=== PATIENT | male | born 1965 | race Caucasian/White ===

== ENCOUNTER 2016-11-28 21:11 | Emergency (ER) | payer BC ==
[2016-11-28] MEDS ORDERED: Proparacaine 0.5% Ophth Soln 15 ML Bottle EYERT PRN (21:24)
[2016-11-28] MEDS ORDERED: Fluorescein 1 MG Ophth Strip EYERT ONE (21:25)
[2016-11-28] MEDS ORDERED: Take Home: Gentamicin 0.3% Ophth Soln 5 ML, 1 Bottle Pack EYEBOTH ONE (22:03)
[2016-11-28 23:52] VITALS: BP 136/80
--- NOTE | 2016-12-03 08:37 | ER ---
Date of Service: 11/28/2016 SUBJECTIVE: Mr. Haynes presents to the emergency room with complaints of a foreign body to his right eye. The patient states that he had been using an angle thread grinder tool to grind some metal approximately 24 hours prior to coming to the emergency room. The patient states that throughout the course of the evening and today he has been experiencing discomfort in the right eye. The patient has also been experiencing some increased watering to the eye as well. He states that he has not noticed any acute vision loss or change. He states that he was wearing eye protection during the grinding, but felt that possibly he did get a piece of metal or piece of sand in his eye. PAST MEDICAL HISTORY: None. MEDICATIONS: None. ALLERGIES: NKDA. REVIEW OF SYSTEMS: Denies any acute vision loss or change. Denies any trauma other than what is isolated to the right eye. PHYSICAL EXAMINATION: General: This is a 51-year-old male patient, in no acute distress. Visual acuity to both eyes pre and post examination is 20/50 to the right eye and 20/40 to the left. Vital signs: Temperature is 36.1, pulse rate is 77, blood pressure is 136/50, respiratory rate is 16, and O2 saturations 96%. Skin: Warm, pink, and dry. HEENT: Head is normocephalic, atraumatic. Eyes, PERRLA. Extraocular movements are intact. There was evidence of a foreign body approximately 2 mm from the lateral edge in the conjunctiva approximately 2mm lateral edge iris at the 9 o'clock position. There is no retained foreign body in the underside of the eyelid. No obvious globe injury noted. Extraocular movements are intact. There is no funduscopic papilledema noted. EMERGENCY ROOM COURSE: The patient's right eye was anesthetized with proparacaine. A small submillimeter speck of metallic material was liberated from the surface of the patient's eye with a cotton-tipped applicator. There was a residual rust formation underlying a piece of steel. I was unable to remove this with a cotton-tipped applicator and subsequently the elder brush was utilized to remove the rust. No other retained material was noted on the surface of the eye or the underside of the eyelid. Fluorescein examination did not reveal any other ocular trauma to the surface of the eye or corneal abrasion other than what was caused by the [place]. The patient tolerated the procedure very well. He remained stable in the my care in the emergency room. ASSESSMENT: Foreign body to right eye with rust formation. PLAN: The patient will be discharged. He was started on gentamicin drops, one drop every 4 hours to right eye. I did advise him to follow up at the eye clinic of his choice tomorrow for slit lamp examination. He is to return to the emergency room if he develops any acute vision loss or change. All questions were answered. MWK: 12/02/2016 20:33:17 MODL: 12/03/2016 00:26:24 /[id number]
== END 2016-11-28 22:15 | disposition home or self-care (01) ==
LOC: VM.ED 21:11 → SUPCPDRO 21:11 → VM.ED 22:15
DX: T15.91XA Foreign body on external eye, part unspecified, right eye, initial encounter (principal); W31.1XXA Contact with metalworking machines, initial encounter
CPT/HCPCS: 65220; 99283; A9270

== ENCOUNTER 2017-04-08 22:18 | Emergency (ER) | payer BC ==
[2017-04-08] MEDS ORDERED: Fluorescein 1 MG Ophth Strip EYELF ONE (22:23)
[2017-04-08] MEDS ORDERED: Proparacaine 0.5% Ophth Soln 15 ML Bottle EYELF PRN ×2 (22:23→22:43)
[2017-04-08 22:25] VITALS: BP 148/89
[2017-04-08] MEDS ORDERED: Take Home: Gentamicin 0.3% Ophth Soln 5 ML, 1 Bottle Pack EYEBOTH ONE (22:40)
--- NOTE | 2017-04-09 07:57 | ER ---
Date of Service: 04/08/2017 SUBJECTIVE: Douglas presents to the emergency room with complaints of foreign body to his left eye. He states that he was using a hardboard grinder and also pulling a lot of wood out of [place]. The patient states that he feels that there is possibility that he got something in his eye. He states that he noticed that when he went to bed and tried to close his eyes that the eye was watering. Denies any injury other than was isolated to his left eye. He states that he thinks he got something stuck in his eye earlier today. PAST MEDICAL HISTORY: Denies. MEDICATIONS: None. ALLERGIES: NKDA. REVIEW OF SYSTEMS: Denies any significant blurred vision in the eye. Again, he states that he is experiencing some irritation and watering to the left eye. Denies any acute vision loss or change. PHYSICAL EXAMINATION: General: This is a 51-year-old male patient, in no acute distress. Vital Signs: Blood pressure is 148/89, heart rate 68, respiratory rate 16, O2 saturations 98%, temp is 36.4, rates his pain at 2 on a 1 to 10 scale. Skin: Warm, pink, and dry. HEENT: Head is normocephalic, atraumatic. Eyes, PERRLA. Extraocular movements are intact. His visual acuity in both eyes was 20/50. Gross evaluation with loupe magnification of the eye does reveal a small subcentimeter foreign body embedded on the surface of the cornea in the area of the mid pupil. No obvious globe injury noted. His extraocular movements are intact. There is no funduscopic papilledema. Also, there was no retained material on the underside of the eyelid. He did have a corneal abrasion located surrounding the area of the foreign body, but no other foreign material was noted. EMERGENCY ROOM COURSE: The patient's left eye was anesthetized with proparacaine. Cotton tipped applicator was used to gently wipe the surface of the eye and liberate the foreign body from the surface of the eye. The patient tolerated this well. Subsequently, fluorescein examination was used to evaluate the surface of the cornea and also the underside of the eyelids. He remained stable in my care in the emergency room. ASSESSMENT: 1. Corneal foreign body. 2. Corneal abrasion. PLAN: The patient was started on gentamicin drops 1 drop every 4 hours for 7 days. I would like him to follow up with his seamer elastic band or facility security officer of choice in the next several days for slit-lamp examination. He needs to return to the emergency room if he develops any acute vision loss or change. All questions were answered. MWK: 04/09/2017 02:35:57 MODL: 04/09/2017 03:11:40 /[id number]
== END 2017-04-08 22:52 | disposition home or self-care (01) ==
LOC: VM.ED 22:18
DX: T15.02XA Foreign body in cornea, left eye, initial encounter (principal); X58.XXXA Exposure to other specified factors, initial encounter
CPT/HCPCS: 65220; 99283; A9270

== ENCOUNTER 2019-05-18 12:42 | Emergency (ER) | payer OTHER, BC ==
[2019-05-18 12:54] VITALS: BP 130/74; PULSE 68
--- NOTE | 2019-05-18 13:10 | EDM.PDOC ---
ED HPI GENERAL MEDICAL PROBLEM - General Chief Complaint: Laceration Stated Complaint: ABRASION UPPER LEFT EYE LID Time Seen by Provider: 05/18/19 12:59 - History of Present Illness INITIAL COMMENTS - FREE TEXT/NARRATIVE: Douglas is a 53 y/o male who cut his left eyebrow on the deflector sign of an augur wagon earlier today. He attempted to steri strip the wound, but it kept bleeding. This was a couple hours ago and so he arrives to have the laceration repaired. Denies other injuries. Left Face/Facial Pain Score (Numeric/FACES): 1 - Related Data Allergies Allergy/AdvReac Type Severity Reaction Status Date / Time No Known Allergies Allergy Verified 05/18/19 12:56 Home Meds: Home Meds . [No Known Home Meds] 11/28/16 [History] Past Medical History - Past Surgical History GI Surgical History: Reports: Appendectomy ED ROS GENERAL - Review of Systems Review Of Systems: See Below Constitutional: Reports: No Symptoms HEENT: Reports: Other (laceration to left eyebrow region) Respiratory: Reports: No Symptoms Cardiovascular: Reports: No Symptoms Endocrine: Reports: No Symptoms GI/Abdominal: Reports: No Symptoms : Reports: No Symptoms Musculoskeletal: Reports: No Symptoms Skin: Reports: No Symptoms Neurological: Reports: No Symptoms Psychiatric: Reports: No Symptoms Hematologic/Lymphatic: Reports: No Symptoms Immunologic: Reports: No Symptoms ED EXAM, SKIN/RASH Exam: See Below Exam Limited By: No Limitations General Appearance: Alert, WD/WN, No Apparent Distress Eye Exam: Bilateral Eye: PERRL Ears: Normal External Exam, Hearing Grossly Normal Nose: Normal Inspection, No Blood Throat/Mouth: Normal Lips, Normal Voice, No Airway Compromise Head: Atraumatic, Normocephalic Neck: Supple Respiratory/Chest: No Respiratory Distress Cardiovascular: Normal Peripheral Pulses, Regular Rate, Rhythm GI/Abdominal: Soft, Non-Tender (Male) Exam: Deferred Rectal (Males) Exam: Deferred Back Exam: Other (Deferred) Extremities: Normal Inspection, Normal Range of Motion Neurological: Alert, Oriented, CN II-XII Intact, Normal Cognition, Normal Gait Psychiatric: Normal Affect, Normal Mood Skin: Warm, Dry, Intact (Note 3 cm crescent shaped laceration just above left eyebrow, bleeding but edges approximate well.), Normal Color Lymphatic: No Adenopathy ED SKIN PROCEDURES - Laceration/Wound Repair Left Other Appearance: Clean, Other (crescent shaped) Distal NVT: Neuro & Vascular Intact, No Tendon Injury Anesthetic Type: Other (NA) Local Anesthesia - Lidocaine (Xylocaine): Other (NA) Skin Prep: Saline Exploration/Debridement/Repair: Wound Explored, No Foreign Material Found Closed with: Dermabond Lac/Wound length In cm: 3.0 Drain Placement: No Sterile Dressing Applied: Provider (Large bandaid applied after Dermabond dry.) Tetanus Status Addressed: Yes (Last Tetanus 2011) Complications: No Progress/Comments: Patient tolerated the procedure well. He as given wound care instructions and sent home in stable condition. Course - Vital Signs Text/Narrative:: The patient was seen by the STITCH WELDER. The laceration was repaired. See Procedure note. Tetanus was updated. Discharge instructions were given and the patient left the ER in stable condition. Last Recorded V/S: Last Vital Signs Temp 36.6 C 05/18/19 12:48 Pulse 68 05/18/19 12:48 Resp 18 05/18/19 12:48 BP 130/74 05/18/19 12:48 Pulse Ox 96 05/18/19 12:48 Departure - Departure Time of Disposition: 13:15 Disposition: Home, Self-Care 01 Condition: Good Clinical Impression: Laceration of eyebrow, left, Tetanus toxoid vaccination administered at current visit - Discharge Information *PRESCRIPTION DRUG MONITORING PROGRAM REVIEWED*: Not Applicable *COPY OF PRESCRIPTION DRUG MONITORING REPORT IN PATIENT JOHNNY: Not Applicable Instructions: VIS, Tetanus, Diphtheria (Td); Tetanus, Diphtheria, Pertussis ( Tdap) - CDC, Facial Laceration, Stitches, [place], or Adhesive Wound Closure Forms: ED Department Discharge Additional Instructions: -Leave dressing intact to wound and keep dry for 24 hours, then you make shower and let the water run over the area, but do not soak in the water or go swimming. -Do not pick the glue off until it has been intact for 7 days, let it wear off. -Watch for signs of infection and see your PCP if you develop any redness, drainage, or fever. -Your tetanus was updated today -Return to or call the ER with any concerns or see your PCP if your condition does not improve as expected
[2019-05-18] MEDS ORDERED: Diphtheria/Tetanus Toxoids,Adult (Td) 0.5 ML SDV IM ONE (13:28)
== END 2019-05-18 13:48 | disposition home or self-care (01) ==
LOC: VM.ED 12:42
DX: S01.112A Laceration without foreign body of left eyelid and periocular area, initial encounter (principal); Z90.49 Acquired absence of other specified parts of digestive tract; Z23 Encounter for immunization; W26.8XXA Contact with other sharp object(s), not elsewhere classified, initial encounter
CPT/HCPCS: 12013; 90471; 90714; 99283

== ENCOUNTER 2024-04-03 07:45 | Day surgery (SDC) | payer BC ==
[2024-04-03] MEDS: Lactated Ringers 1,000 ML IV SCH (08:03)
[2024-04-03] MEDS ORDERED: Propofol 200 MG/20 ML SDV ONE ×2 (08:40→09:51)
[2024-04-03] MEDS ORDERED: fentaNYL 100 MCG/2 ML SDV ONE (08:40)
[2024-04-03 10:26] VITALS: BP 108/67; PULSE 60
== END 2024-04-03 10:58 | disposition home or self-care (01) ==
LOC: VM.SDS 07:45
PROVIDERS: ATTEND Student in an Organized Health Care Education/Training Program
DX: D12.2 Benign neoplasm of ascending colon (principal); E78.00 Pure hypercholesterolemia, unspecified; K62.1 Rectal polyp; E66.9 Obesity, unspecified; Z68.33 Body mass index [BMI] 33.0-33.9, adult
CPT/HCPCS: 00811; J2704; J3010; J7120